=== PATIENT | female | born 1990 | race Caucasian/White ===

== ENCOUNTER 2025-08-06 20:46 | Emergency (ER) | payer OTHER ==
[~2025-08-06] VITALS: Ht 154.9 cm; Wt 60.0 kg
[2025-08-06 21:03] VITALS: TEMP 98.6
[2025-08-06 21:29] LABS: APPEARANCE,URINE HAZY (CLEAR); GLUCOSE, URINE (UA) NEGATIVE (NEGATIVE); LEUKOCYTE ESTERASE ,URINE NEGATIVE (NEGATIVE); NITRATE,URINE NEGATIVE (NEGATIVE); OCCULT BLOOD,URINE MODERATE (NEGATIVE); SPECIFIC GRAVITIY, URINE 1.022 (1.003-1.030)
[2025-08-06 21:39] LABS: AMORPHOUS SEDIMENT,UR Moderate /LPF (None Seen); SQUAMOUS EPITHELIAL CELL,UR Few /LPF (None Seen)
[2025-08-06 21:57] LABS: HCG,QUAL URINE NEGATIVE (NEGATIVE)
[2025-08-06 22:15] LABS: PLATELET COUNT (AUTO) 256 K/uL (150-450); RED BLOOD CELL COUNT(AUTO) 4.53 MIL/uL (4.00-5.20); RED CELL DISTRIBUTION WIDTH 12.8 % (11.5-14.5); WHITE BLOOD COUNT (AUTO) 9.8 K/uL (4.5-11.0)
[2025-08-06] MEDS: IBUPROFEN 600 MG TABLET PO ONE (22:24)
[2025-08-06 22:25] LABS: CALCIUM, TOTAL 8.8 mg/dL (8.8-10.5); CREATININE 0.66 mg/dL (0.60-1.30); GLOMERULAR FILTR. RATE CALC > 60 mL/min (>60); GLUCOSE,RANDOM 98 mg/dL (70-110); SODIUM SERUM 139 mmol/L (136-145); UREA NITROGEN, BLOOD 15 mg/dL (7-18)
[2025-08-07 01:03] VITALS: BP 124/77; PULSE 78; RESP 16; O2SAT 98
[2025-08-07] MEDS ORDERED: IBUP-1506 PO (01:29)
== END 2025-08-07 01:37 | disposition home or self-care (01) ==
LOC: EMS 20:49
DX: N93.8 Other specified abnormal uterine and vaginal bleeding (principal); N89.8 Other specified noninflammatory disorders of vagina
CPT/HCPCS: 76830; 76856; 80048; 81001; 84702; 84703; 85025; 86850; 86900; 86901; 99284